=== PATIENT | male | born 1985 | race Caucasian/White ===

== ENCOUNTER 2018-01-30 18:27 | Emergency (ER) | payer BC ==
--- NOTE | 2018-01-30 19:29 | EDPHY ---
H & P Time Seen by Provider: 01/30/18 19:15 HPI/ROS: CHIEF COMPLAINT: Abdominal pain nausea vomiting diarrhea chest pain HISTORY OF PRESENT ILLNESS: 32-year-old male generally healthy complaining of 3 days of nausea vomiting diarrhea with development of sharp stabbing chest pain , nonpleuritic, for the past 12-24 hours. He was seen at [facility] and referred to the ER for evaluation. His nausea is currently resolved. He is complaining of continued lower abdominal pain radiating to his back. No testicular pain. No urinary abnormality. No melena or hematochezia. No international travel. No antibiotic use. No known sick contacts. No history of chronic abdominal pathology or history of abdominal surgeries. No dyspnea. [ REVIEW OF SYSTEMS: A ten point review of systems was performed and is negative with the exception of the items mentioned in the HPI PAST MEDICAL & SURGICAL HISTORY: No pertinent medical or surgical history SOCIAL HISTORY:Nonsmoker. 5-6 drinks of alcohol per day "I drink too much" FAMILY HISTORY:no family history of premature coronary artery disease or sudden unexplained . PHYSICAL EXAM (Prior to examination, patient consented to physical exam, hands were washed and my usual and customary physical exam procedures followed) 1) GENERAL: Well-developed, well-nourished, alert and oriented. Appears uncomfortable. 2) HEAD: Normocephalic, atraumatic 3) HEENT: Pupils equal, round, reactive to light bilaterally. Sclera anicteric. Nasopharynx, oropharynx, clear, no lesions. 4) NECK: Full range of motion, no meningeal signs. 5) LUNGS: Clear auscultation bilaterally, no wheezes, no rhonchi, no retractions. 6) HEART: Regular rate and rhythm, no murmur, no heave, no gallop. 7) ABDOMEN: Tender to palpation bilateral lower quadrants., 8) MUSCULOSKELETAL: Moving all extremities, no focal areas of tenderness, no obvious trauma. No peripheral edema or discoloration. 9) BACK: No CVA tenderness, no midline vertebral tenderness, no fluctuance, no step-off, no obvious trauma, no visual or palpable abnormality. 10) SKIN: No rash, no petechiae. 11) Psychiatric: Patient is oriented X 3, there is no agitation. DIFFERENTIAL DIAGNOSIS: My differential diagnosis includes, but is not limited to, acute appendicitis, acute cholecystitis, bowel obstruction, acute pancreatitis,, gastritis, esophageal reflux, PA, pneumomediastinum, pneumothorax. The patient understands that this diagnosis is provisional and can never be 100% accurate. This is a partial list of diagnoses considered. These considerations are based on history, physical exam, past history and reassessment. Smoking Status: Former smoker Constitutional: Initial Vital Signs Temperature (C) 36.8 C 01/30/18 18:35 Heart Rate 87 01/30/18 18:35 Respiratory Rate 16 01/30/18 18:35 Blood Pressure 135/94 H 01/30/18 18:35 O2 Sat (%) 98 01/30/18 18:35 O2 Delivery Mode Room Air Allergies/Adverse Reactions: No Known Allergies Allergy (Unverified 01/30/18 18:34) Home Medications: Medication Instructions Recorded Turmeric 01/30/18 Zoloft 50mg (*) 01/30/18 MDM/Departure - MDM Imaging Results: Imaging Impressions Chest X-Ray 01/30/18 19:32 Impression: There is no acute intrathoracic abnormality. Abdomen CT 01/30/18 20:31 Impression: 1. 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 2. Mesenteric adenitis, likely viral in etiology. 3. Normal appearance of the appendix. 4. Mild hepatosplenomegaly. Findings were discussed with Gabrielle Shepherd PA-C at 21:29, on 01/30/2018. Images reviewed myself images Medications Given: Discontinued Medications Sodium Chloride (Ns) 1,000 mls @ 0 mls/hr IV ONCE ONE PRN Reason: Wide Open Stop: 01/30/18 19:31 Last Admin: 01/30/18 19:43 Dose: 1,000 mls Ondansetron HCl (Zofran Odt 4 Mg Prepack#2) 1 btl TAKEHOME EDNOW ONE Stop: 01/30/18 21:48 Last Admin: 01/30/18 21:50 Dose: 1 btl ED Course/Re-evaluation: 8:30 p.m.: Re-evaluation, he is feeling improvement of symptoms. Re- examination of his abdomen reveals focal tenderness at McBurney's point. We discussed his other laboratory studies. We discussed options including return to the ER in 12 hr for recheck or CT imaging now to evaluate possible appendicitis. He has a toddler at home and notes difficulty of having to return to the ER. He elects to have CT imaging performed now. 9:41 p.m.: Re-evaluation. I discussed his imaging studies showing a normal appearing appendix. Discussed his symptoms are more than likely secondary to acute gastroenteritis. He has had no complaints of chest pain. We did discuss his other diagnostic studies including normal troponin, normal EKG and chest x- ray. They that the patient's earlier chest pain was less than likely secondary to acute cardiac or pulmonary etiology and more likely secondary to recurrent episodes of vomiting. Nonetheless chest x-ray was performed to evaluate for possible pathology such as pneumomediastinum , pneumothorax, and these were subsequently negative. The patient feels comfortable being discharged with usual and customary discharge precautions and instructions. - Depart Disposition: Home, Routine, Self-Care Clinical Impression: Abdominal pain Qualifiers: Abdominal location: right lower quadrant Qualified Code(s): R10.31 - Right lower quadrant pain Condition: Good Instructions: Ondansetron (By mouth), Acute Abdominal Pain (ED) Additional Instructions: Seek immediate medical attention if you develop new or worsening symptoms, if you develop fevers, chills, inability to tolerate oral intake or any other symptoms that concerns you. Referrals: Marita Chang MD [Primary Care Provider] - 1-2 days without fail
[2018-01-30] MEDS ORDERED: NS 1,000 ML IV ONE (19:30)
[2018-01-30 19:41] LABS: PLATELET COUNT 167 10^3/uL (150-400)
--- NOTE | 2018-01-30 19:44 | CPEKG ---
Heart Rate: 74 RR Interval: 811 P-R Interval: 204 QRSD Interval: 104 QT Interval: 356 QTC Interval: 395 P Stratford: 57 QRS Stratford: 80 T Wave Stratford: 7 EKG Severity - BORDERLINE ECG - EKG Impression: SINUS RHYTHM EKG Impression: PROBABLE LEFT ATRIAL ABNORMALITY Electronically Signed By: Kalin Jimenez 31-Jan-2018 19:53:18
[2018-01-30] MEDS ORDERED: IOPAMIDOL (ISOVUE-300) 100 ML BTL ONE (20:57)
[2018-01-30] MEDS ORDERED: ONDANSETRON 4MG PREPACK#2 BTL TAKEHOME ONE (21:47)
[2018-01-30 21:52] VITALS: BP 104/61
== END 2018-01-30 21:53 | disposition home or self-care (01) ==
DX: R10.31 Right lower quadrant pain (principal); Z87.891 Personal history of nicotine dependence
CPT/HCPCS: Q9967

== ENCOUNTER 2018-07-22 01:22 | Emergency (ER) | payer BC ==
[2018-07-22] MEDS ORDERED: ONDANSETRON 4 MG/2 ML VIAL ONE (01:29)
[2018-07-22] MEDS ORDERED: NS 1,000 ML IV ONE ×2 (01:32→04:38)
[2018-07-22] MEDS ORDERED: ONDANSETRON 4 MG/2 ML VIAL IVP ONE (01:32)
[2018-07-22 01:38] LABS: PLATELET COUNT 228 10^3/uL (150-400)
--- NOTE | 2018-07-22 01:40 | EDPHY ---
H & P Time Seen by Provider: 07/22/18 01:32 HPI/ROS: Chief Complaint: Nausea, vomiting HPI: 32-year-old male began having nausea vomiting after drinking an unknown amount of whiskey with a co-worker this evening. Patient's says that he came in this morning complaining of not feeling well and vomited multiple times. Does not have a history of similar episodes in the past. No recent illness. No abdominal pain. No fevers or chills. No falls or head injury. ROS: 10 systems were reviewed and were negative except those elements noted in the HPI. PMH: Anxiety Social History: No smoking, occasional alcohol Family History: non-contributory Physical Exam: Gen: Awake, Alert, slurred speech, smells of alcohol HEENT: Nose: no rhinorrhea Eyes: PERRLA, EOMI Mouth: Moist mucosa Neck: Supple, no JVD Chest: nontender, lungs clear to auscultation Heart: S1, S2 normal, no murmur Abd: Soft, non-tender, no guarding Back: no CVA tenderness, no midline tenderness Ext: no edema, non-tender Skin: no rash Neuro: CN II-XII intact, Sensation grossly intact, Strength 5/5 in bilateral upper and lower extremities - Medical/Surgical History Hx Asthma: Yes Hx Chronic Respiratory Disease: No Hx Diabetes: No Hx Cardiac Disease: No Hx Renal Disease: No Hx Cirrhosis: No Hx Alcoholism: Yes Hx HIV/AIDS: No Hx Splenectomy or Spleen Trauma: No Other PMH: asthma, - Social History Smoking Status: Former smoker Constitutional: Initial Vital Signs Temperature (C) 36.6 C 07/22/18 01:37 Heart Rate 83 07/22/18 01:37 Respiratory Rate 18 07/22/18 01:37 Blood Pressure 113/68 07/22/18 01:37 O2 Sat (%) 92 07/22/18 01:37 O2 Delivery Mode Room Air O2 (L/minute) 97 Allergies/Adverse Reactions: No Known Allergies Allergy (Unverified 07/22/18 01:31) Home Medications: Medication Instructions Recorded Turmeric 01/30/18 Zoloft 50mg (*) 01/30/18 Medical Decision Making ED Course/Re-evaluation: Patient is improved after fluids and time to metabolize his alcohol. Abdomen is soft and benign. He is tolerating p. O.. Will discharge with follow-up with his primary care physician. - Data Points Laboratory Results: Laboratory Results 07/22/18 01:15 07/22/18 01:15 07/22/18 07/22/18 01:15 01:15 WBC 6.18 10^3/uL 10^3/uL (3.80-9.50) RBC 5.13 10^6/uL 10^6/uL (4.40-6.38) Hgb 15.3 g/dL g/dL (13.7-17.5) Hct 42.5 % % (40.0-51.0) MCV 82.8 fL fL (81.5-99.8) MCH 29.8 pg pg (27.9-34.1) MCHC 36.0 g/dL g/dL (32.4-36.7) RDW 12.1 % % (11.5-15.2) Plt Count 228 10^3/uL 10^3/uL (150-400) MPV 9.4 fL fL (8.7-11.7) Neut % (Auto) 35.4 % L % (39.3-74.2) Lymph % (Auto) 51.5 % H % (15.0-45.0) [place] % (Auto) 9.1 % % (4.5-13.0) Eos % (Auto) 2.9 % % (0.6-7.6) Baso % (Auto) 0.8 % % (0.3-1.7) Nucleat RBC Rel Count 0.0 % % (0.0-0.2) Absolute Neuts (auto) 2.19 10^3/uL 10^3/uL (1.70-6.50) Absolute Lymphs (auto) 3.18 10^3/uL H 10^3/uL (1.00-3.00) Absolute Monos (auto) 0.56 10^3/uL 10^3/uL (0.30-0.80) Absolute Eos (auto) 0.18 10^3/uL 10^3/uL (0.03-0.40) Absolute Basos (auto) 0.05 10^3/uL 10^3/uL (0.02-0.10) Absolute Nucleated RBC 0.00 10^3/uL 10^3/uL (0-0.01) Immature Gran % 0.3 % % (0.0-1.1) Immature Gran # 0.02 10^3/uL 10^3/uL (0.00-0.10) Sodium 146 mEq/L H mEq/L (135-145) Potassium 3.8 mEq/L mEq/L (3.3-5.0) Chloride 108 mEq/L mEq/L (97-110) Carbon Dioxide 26 mEq/l mEq/l (22-31) Anion Gap 12 mEq/L mEq/L (8-16) BUN 11 mg/dL mg/dL (7-23) Creatinine 0.8 mg/dL mg/dL (0.7-1.3) Estimated GFR > 60 Glucose 109 mg/dL H mg/dL (70-100) Calcium 9.4 mg/dL mg/dL (8.5-10.4) Ethyl Alcohol 215 mg/dL H mg/dL (0-10) Medications Given: Discontinued Medications Sodium Chloride (Ns) 1,000 mls @ 0 mls/hr IV EDNOW ONE; Wide Open PRN Reason: Protocol Stop: 07/22/18 01:33 Last Admin: 07/22/18 01:33 Dose: 1,000 mls Sodium Chloride (Ns) 1,000 mls @ 0 mls/hr IV ONCE ONE; Wide Open PRN Reason: Protocol Stop: 07/22/18 04:39 Last Admin: 07/22/18 04:46 Dose: 1,000 mls Ondansetron HCl (Zofran) 4 mg IVP EDNOW ONE Stop: 07/22/18 01:33 Last Admin: 07/22/18 01:33 Dose: 4 mg Promethazine HCl (Phenergan) 12.5 mg IVP ONCE ONE Stop: 07/22/18 04:39 Last Admin: 07/22/18 04:47 Dose: 12.5 mg Departure - Departure Disposition: Home, Routine, Self-Care Clinical Impression: Alcoholic intoxication, Vomiting Condition: Good Instructions: Alcohol Intoxication (ED), Acute Nausea and Vomiting (ED) Additional Instructions: Return to the emergency department for uncontrolled vomiting, fevers or chills, shortness of breath, or any other concerns. Referrals: Yanira Larkin MD [[facility] Primary Care Provider] - As per Instructions
[2018-07-22] MEDS ORDERED: PROMETHAZINE HCL 25 MG/ML INJ IVP ONE (04:38)
[2018-07-22 06:08] VITALS: BP 112/63
== END 2018-07-22 06:09 | disposition home or self-care (01) ==
LOC: EDUNIT#
DX: F10.129 Alcohol abuse with intoxication, unspecified (principal); R11.10 Vomiting, unspecified; E86.9 Volume depletion, unspecified; Y90.7 Blood alcohol level of 200-239 mg/100 ml
CPT/HCPCS: 96374; G0480; J2405; J2550